=== PATIENT | female | born 1965 | race Caucasian/White ===

== ENCOUNTER 2019-08-16 14:27 | Outpatient (CLI) | payer OTHER | END 2019-08-17 09:04 | disposition home or self-care (01) | LOC: TOM 14:27 | DX: M54.5 Low back pain (principal) ==

== ENCOUNTER 2023-07-01 14:25 | Outpatient (CLI) | payer OTHER | END 2023-07-01 14:32 | disposition home or self-care (01) | LOC: SONOGRAMA 14:25 | PROVIDERS: ATTEND Pathology Anatomic Pathology & Clinical Pathology | DX: D44.0 Neoplasm of uncertain behavior of thyroid gland (principal); E04.2 Nontoxic multinodular goiter ==